=== PATIENT | female | born 1980 | race Caucasian/White ===

== ENCOUNTER 2018-09-11 21:39 | Emergency (ER) | payer MEDICAID ==
[~2018-09-11] VITALS: Ht 154.9 cm; Wt 69.6 kg
[2018-09-11 21:44] VITALS: BP 129/84
--- NOTE | 2018-09-11 21:47 | NUR ---
TO LOBBY A/W BED, AMB, VSS, ERMD, NOTED, NASAL SWAB DONE.
--- NOTE | 2018-09-11 22:20 | NUR ---
37 Y/O F PRESENTS TO THE ED W/C/O COUGH AND FEVER. TEMP 98.8 ORAL. PT STATES SHE HAS PAIN WHEN SHE COUGHS CAUSING THE CHEST TO HURT. THIS HAS BEEN GOING ON FOR A MONTH. PT DENIES N/V/D; SKIN IS INTACT, PINK/WARM/DRY; AAOX4, PERRL, WITH EVEN AND STEADY GAIT; BREATHING UNLABORED; HR EVEN AND REGULAR, BL PERIPHERAL PULSES PRESENT; BS ACTIVE X4. PT STATES 10/10 PAIN AT THIS TIME; VSS; PATIENT POSITIONED FOR COMFORT; HOB ELEVATED; BEDRAILS UP X2; BED DOWN.
--- NOTE | 2018-09-11 22:20 | NUR ---
PT TAKEN TO BED 3
[2018-09-11] MEDS ORDERED: ACETAMIN/CODEINE 120/12MG-5ML 5 ML UDC PO ONE (23:00)
[2018-09-11] MEDS ORDERED: KETOROLAC 30 MG/ML VIAL IM ONE (23:00)
[2018-09-12 00:25] VITALS: BP 125/84
--- NOTE | 2018-09-12 00:26 | NUR ---
Patient discharged with v/s stable. Written and verbal after care instructions given and explained. Patient alert, oriented and verbalized understanding of instructions. Ambulatory with steady gait. All questions addressed prior to discharge. ID band removed. Patient advised to follow up with PMD. Rx of PREDNISONE, ALBUTEROL, AZITHROMYCIN given. Patient educated on indication of medication including possible reaction and side effects. Opportunity to ask questions provided and answered.
== END 2018-09-12 00:26 | disposition home or self-care (01) ==
LOC: MED 21:39
DX: J20.9 Acute bronchitis, unspecified (principal)
CPT/HCPCS: 36415; 71045; 87804; 96372; 99284; J1885; Q0092

== ENCOUNTER 2018-12-13 13:05 | Inpatient (IN) | payer MEDICAID ==
[~2018-12-13] VITALS: Ht 157.5 cm; Wt 63.5 kg
--- NOTE | 2018-12-13 13:19 | NUR ---
PATIENT AMBULATED TO BED 3 AT THIS TIME.
[2018-12-13 13:27] VITALS: BP 116/78
--- NOTE | 2018-12-13 13:35 | NUR ---
Pt report given to nestor Justice. Transfer of care at this time.
--- NOTE | 2018-12-13 13:49 | NUR ---
THIS 38 YEAR OLD FEMALE IS BIB SELF TO THE ED WITH THE CHIEF C/O ABDOMINAL PAIN THAT RADIATES TO LOWER BACK FOR 15 HOURS. DENIES ANY N/V. HAVING DIARRHEA X4 WEEKS. NO BLOOD IN DIARRHEA. DIARRHEA X4 TODAY. DENIES ANY BURNING OR FREQUENCY OF URINATION. DENIES ANY FEVER. DENIES MEDICAL HX. STATES PAIN OF 10/10 AT THIS TIME. VSS. ER AWARE.
[2018-12-13] MEDS ORDERED: ONDANSETRON 4 MG/2 ML VIAL IVP ONE (14:00)
[2018-12-13 14:38] LABS: BASOPHILS % (AUTO) 0.4 % (0.0-2.0); EOSINOPHILS # (AUTO) 0.1 K/uL (0-0.4); EOSINOPHILS % (AUTO) 1.2 % (0.0-4.0); HEMATOCRIT 38.9 % (36-48); HEMOGLOBIN 12.9 g/dL (12.0-16.0); LYMPHOCYTES # (AUTO) 1.1 K/uL (2.5-16.5); LYMPHOCYTES % (AUTO) 12.6 % (20.5-51.1); MEAN CORPUSCULAR HEMOGLOBIN 30 pg (27-31); MEAN CORPUSCULAR HGB CONC 33 g/dL (33-37); MONOCYTES # (AUTO) 0.7 K/uL (0.8-1.0); MONOCYTES % (AUTO) 7.9 % (1.7-9.3); NEUTROPHILS # (AUTO) 6.6 K/uL (1.8-7.7); NEUTROPHILS % (AUTO) 77.9 % (42.2-75.2); PLATELET COUNT (AUTO) 187 K/uL (140-450); RED BLOOD CELL COUNT(AUTO) 4.32 MIL/uL (4.20-5.40); RED CELL DISTRIBUTION WIDTH 13.9 % (11.6-13.7); WHITE BLOOD COUNT (AUTO) 8.5 K/uL (4.8-10.8)
[2018-12-13] MEDS: LEVOFLOXACIN 500 MG/D5W PREMIX 100 ML IV ONE ×2 (14:44→14:54)
[2018-12-13 14:52] LABS: ANION GAP 14.3 (8-16); CARBON DIOXIDE 26.4 mmol/L (21-32); CREATININE 0.5 mg/dL (0.6-1.3); POTASSIUM 3.7 mmol/L (3.5-5.1)
[2018-12-13] MEDS ORDERED: ACETAMINOPHEN 325 MG TAB PO PRN (14:55)
[2018-12-13] MEDS ORDERED: DOCUSATE SODIUM 100 MG GELCAP PO PRN (14:55)
[2018-12-13 15:02] LABS: ALBUMIN 3.4 g/dL (3.4-5.0); TOTAL BILIRUBIN 0.4 mg/dL (0.0-1.0)
[2018-12-13 15:35] LABS: PROTHROMBIN TIME 9.8 secs (10.8-13.4)
[2018-12-13 15:41] LABS: FREE T4 (FREE THYROXINE) 0.9 ng/dL (0.76-1.46); MAGNESIUM 1.7 mg/dL (1.8-2.4); PHOSPHORUS 3.2 mg/dL (2.5-4.9); THYROID STIMULATING HORMONE 1.2 uIU/mL (0.34-3.74)
[2018-12-13] MEDS ORDERED: LOPERAMIDE 2 MG CAP PO SCH (16:00)
[2018-12-13] MEDS: NACL 0.9% 1,000 ML IV SCH (16:01)
--- NOTE | 2018-12-13 16:15 | NUR ---
PT TRANSFERRED TO [facility] VIA [facility] ON STABLE CONDITION. REPORT GIVEN TO TRAVIS MELGAR TAKEN WITH PT.
--- NOTE | 2018-12-13 16:20 | NUR ---
RECEIVED BEDSIDE REPORT FROM ER NURSE. PATIENT IS AWAKE, ALERT AND ORIENTEDX4. USED IRB COMPLIANCE COORDINATOR PHONE FOR ADMISSION QUESTIONS. SHAYAN IRB COMPLIANCE COORDINATOR NUMBER [id number]. MRSA SWAB DONE. SKIN IS INTACT. PATIENT IS AMBULATORY, CONTINENT. PATIENT NPO PATIENT UNDERSTANDS NOTHING TO EAT AT THIS TIME. BED IN LOW POSITION. CALL LIGHT WITHIN REACH. WILL CONTINUE TO MONITOR THE PATIENT.
[2018-12-13 16:25] LABS: APPEARANCE,URINE CLEAR (CLEAR); BILIRUBIN,URINE NEGATIVE (NEGATIVE); BLOOD, URINE 2+ (NEGATIVE); COLOR,URINE YELLOW (YELLOW); LEUKOCYTE ESTERASE ,URINE TRACE (NEGATIVE); NITRITE, URINE NEGATIVE (NEGATIVE); UGLUCOSE NEGATIVE (NEGATIVE)
[2018-12-13 16:30] VITALS: BP 122/69
[2018-12-13 16:31] LABS: BARBITURATE, URINE NEG. ng/ml (NEG <=200); BENZODIAZEPINE, URINE NEG. ng/mL (NEG <=200); CANNABINOID, URINE NEG. ng/mL (NEG <=50); COCAINE, URINE NEG. ng/mL (NEG <=300); OPIATE, URINE NEG. ng/mL (NEG <=2000); PHENCYCLIDINE SCREEN,URINE NEG. ng/mL (NEG <=25)
[2018-12-13] MEDS ORDERED: MAG SULF 2000 MG/WATER PREMIX 50 ML IV SCH (17:00)
[2018-12-13] MEDS: HYDROcodone/APAP 5/325 MG 1 TAB TAB PO PRN ×2 (17:36→23:40)
--- NOTE | 2018-12-13 17:43 | NUR ---
ADMINISTERED MEDS. PATIENT TOLERATED WELL. PATIENT HAS TORIBIO AND ABD PAIN. PAIN MED GIVEN. PATIENT ABLE TO VERBALIZE NEEDS. NO COMPLAINTS AT THIS TIME. WILL CONTINUE TO MONITOR
--- NOTE | 2018-12-13 19:05 | NUR ---
GAVE BEDSIDE REPORT TO PEDIATRIC CRITICAL CARE NURSE NURSE, PATIENT ENDORSED IN STABLE CONDITION
--- NOTE | 2018-12-13 19:06 | NUR ---
RECEIVED BEDSIDE REPORT FROM DAY SHIFT NURSE JANIS RN, PT STABLE, NO DISTRESS NOTED, IV TO L AC 20G PATENT, INTACT, INFUSING MAGNESIUM @ 25ML/HR, INFUSING WELL, PT ON ROOM AIR, NO SOB, INITIAL ASSESSMENT DONE, ALL SAFETY PRECAUTION MET, CALL LIGHT WITHIN REACH, WILL CONTINUE TO MONITOR.
--- NOTE | 2018-12-13 20:00 | NUR ---
REVIEWED ARIELLE ORDER WITH DR CONKLIN REASON FOR EXAM: ON ADMISSION Addendum: 12/13/18 at 2000 by Rohan Jimenez RT CALLED [phone]
--- NOTE | 2018-12-13 20:00 | NUR ---
NOTIFIED DR. CONKLIN REGARDING, PT C/O PAIN 07/02, NORCO ALREADY GIVEN AT 17.36 AND HAS NOT BEEN EFFECTIVE ACCORDING TO PT, STATED UNDERSTANDING, WILL ORDER MEDICATION FOR PT, WILL CONTINUE WITH DR. KRISHNAMURTHY.
[2018-12-13] MEDS: MORPHINE SULFATE 2 MG/ML SYR IVP PRN (20:25)
[2018-12-13] MEDS: metroNIDAZOLE 500 MG/NS PREMIX 100 ML IV SCH (20:26)
[2018-12-13] MEDS: ONDANSETRON 4 MG/2 ML VIAL IM/IVP PRN (20:26)
--- NOTE | 2018-12-13 20:26 | NUR ---
DUE MEDICATION ADMINISTERED, PT STATED HAVING PAIN 10/10 TO THE STOMACH AREA, PAIN MEDICATION PER MD ORDER GIVEN, PT TOLERATED WELL, NO DISTRESS NOTED, CALL LIGHT WITHIN REACH, WILL CONTINUE TO MONITOR.
--- NOTE | 2018-12-13 23:55 | NUR ---
DUE MEDICATION ADMINISTERED, PT TOLERATED WELL, NO DISTRESS NOTED, CALL LIGHT WITHIN REACH, V/S TAKEN WNL, WILL CONTINUE TO MONITOR.
[2018-12-13 23:56] VITALS: BP 109/67
--- NOTE | 2018-12-14 04:30 | NUR ---
CHECKED ON PT, PT SLEEPING, NO DISTRESS NOTED, CALL LIGHT WITHIN REACH, WILL CONTINUE TO MONITOR.
[2018-12-14] MEDS: metroNIDAZOLE 500 MG/NS PREMIX 100 ML IV SCH ×3 (05:15→20:29)
--- NOTE | 2018-12-14 07:25 | NUR ---
ENDORSED PT TO DAY SHIFT NURSE JANIS RN, PT STABLE, NO DISTRESS NOTED, CALL LIGHT WITHIN REACH.
--- NOTE | 2018-12-14 07:26 | NUR ---
RECEIVED BEDSIDE REPORT FROM IRON PLASTIC BULLET MAKER NURSE. PATIENT IS AWAKE, ALERT AND ORIENTEDX4. BURUNDIAN SPEAKER. SKIN IS INTACT. PATIENT IS AMBULATORY. R/O C DIFF, PRECAUTIONS IN PLACE. L AC 20G INFUSING NS AT 60. CLEAN, DRY AND INTACT. BED IN LOW POSITION. CALL LIGHT WITHIN REACH. PATIENT ABLE TO MAKE NEEDS KNOWN. WILL CONTINUE TO MONITOR THE PATIENT.
[2018-12-14 07:29] LABS: BASOPHILS % (AUTO) 0.3 % (0.0-2.0); EOSINOPHILS # (AUTO) 0.1 K/uL (0-0.4); EOSINOPHILS % (AUTO) 0.9 % (0.0-4.0); HEMATOCRIT 36.7 % (36-48); HEMOGLOBIN 12.3 g/dL (12.0-16.0); LYMPHOCYTES # (AUTO) 0.8 K/uL (2.5-16.5); LYMPHOCYTES % (AUTO) 11.7 % (20.5-51.1); MEAN CORPUSCULAR HEMOGLOBIN 30 pg (27-31); MEAN CORPUSCULAR HGB CONC 34 g/dL (33-37); MEAN CORPUSCULAR VOLUME 89.5 fL (80-94); MONOCYTES # (AUTO) 0.6 K/uL (0.8-1.0); MONOCYTES % (AUTO) 8.9 % (1.7-9.3); NEUTROPHILS # (AUTO) 5.5 K/uL (1.8-7.7); NEUTROPHILS % (AUTO) 78.2 % (42.2-75.2); PLATELET COUNT (AUTO) 182 K/uL (140-450); RED CELL DISTRIBUTION WIDTH 13.9 % (11.6-13.7)
[2018-12-14] MEDS: NACL 0.9% 1,000 ML IV SCH (07:33)
[2018-12-14 08:00] VITALS: BP 99/61
[2018-12-14 08:15] LABS: CHOL/HDL RATIO 2.6 (1-4.5)
[2018-12-14 08:35] LABS: CARBON DIOXIDE 23.4 mmol/L (21-32)
[2018-12-14] MEDS: LACTOBACILLUS RHAMNOSUS GG 1 EACH CAP PO SCH (08:49)
[2018-12-14] MEDS: MORPHINE SULFATE 2 MG/ML SYR IVP PRN ×2 (08:50→20:13)
--- NOTE | 2018-12-14 08:50 | NUR ---
B/P 110/57 HR 73 ADMINISTERED PRN PAIN MED. PATIENT COMPLAINTS OF 7/10 ABD PAIN. PATIENT TOLERATED WELL. EDUCATED ON SIDE EFFECTS. PATIENT VERBALIZED UNDERSTANDING. WILL CONTINUE TO MONITOR THE PATIENT. PATIENT ABLE TO MAKE NEEDS KNOWN.
[2018-12-14 09:07] LABS: ANION GAP 14.4 (8-16); CREATININE 0.5 mg/dL (0.6-1.3); POTASSIUM 3.8 mmol/L (3.5-5.1)
[2018-12-14] MEDS ORDERED: NACL 0.9% 250 ML IV SCH (09:10)
[2018-12-14] MEDS ORDERED: DICYCLOMINE HCL LIQUID 10 MG/5 ML UDC PO SCH (09:30)
--- NOTE | 2018-12-14 10:41 | NUR ---
ADMINISTERED NATASHA MEDS AND IV BOLUS. PATIENT TOLERATED WELL. EDUCATED ON SIDE EFFECTS. PATIENT VERBALIZED UNDERSTANDING. MOTHER AT BEDSIDE. ASKED FAMILY TO PUT ON PPE. MOTHER PUT PPE AND EDUCATED ON THE RISKS OF POSSIBLE INFECTION. WILL CONTINUE TO MONITOR THE PATIENT. PATIENT ABLE TO MAKE NEEDS KNOWN
[2018-12-14] MEDS ORDERED: PANTOPRAZOLE 40 MG INJ VIAL IVP SCH (11:00)
--- NOTE | 2018-12-14 12:00 | NUR ---
PATIENT SITTING IN BED IN NO DISTRESS. WILL CONTINUE TO MONITOR THE PATIENT
[2018-12-14] MEDS: DEXT 5% /NACL 0.9% 1,000 ML IV SCH ×2 (12:59→19:10)
--- NOTE | 2018-12-14 13:05 | NUR ---
ADMINISTERED D5 NS AT 100. IV. CLEAN,DRY AND INTACT. ADMINISTERED ORDERED PROTONIX IVP. PATIENT TOLERATED WELL. EDUCATED ON SIDE EFFECTS. PATIENT VERBALIZED UNDERSTANDING. MOM AT BEDSIDE. WILL CONTINUE TO MONITOR
--- NOTE | 2018-12-14 14:03 | NUR ---
ADMINISTERED NATASHA ANTIBIOTICS. PATIENT TOLERATING WELL. EDUCATED ON SIDE EFFECTS. GAVE PATIENT ANOTHER BLANKET REQUESTED. WILL CONTINUE TO MONITOR. PATIENT ABLE TO MAKE NEEDS KNOWN
[2018-12-14 16:00] VITALS: BP 109/69
--- NOTE | 2018-12-14 16:00 | NUR ---
VITALS WNL. WILL CONTINUE TO MONITOR THE PATIENT
--- NOTE | 2018-12-14 16:30 | NUR ---
PATIENT COMPLAINTS OF PAIN AT IV SITE. REMOVED IV AND PLACED A NEW ONE ON L HAND 22G. CLEAN, DRY AND INTACT.
[2018-12-14] MEDS: LEVOFLOXACIN 500 MG/D5W PREMIX 100 ML IV SCH (16:58)
[2018-12-14] MEDS: ONDANSETRON 4 MG/2 ML VIAL IM/IVP PRN ×2 (17:04→21:08)
--- NOTE | 2018-12-14 17:09 | NUR ---
PATIENT IS VOMITING. ADMINISTERED PRN NAUSEA MED. PATIENT NOT TOLERATING FOOD WELL. ADMINISTERED NATASHA ANTIBIOTICS. PATIENT EDUCATED ON SIDE EFFECTS. PATIENT TOLERATED WELL. WILL CONTINUE TO MONITOR. MOM AT BEDSIDE
--- NOTE | 2018-12-14 19:16 | NUR ---
gave bedside report to shift commander nurse. patient endorsed in stable condition
--- NOTE | 2018-12-14 19:16 | NUR ---
RECEIVED REPORT FROM DENILSON RN DAYSHIFT NURSE AT BEDSIDE FOR CONTINUITY OF CARE, PT IN STABLE CONDITION.
--- NOTE | 2018-12-14 19:45 | NUR ---
PT IN BED FAMILY AT BEDSIDE. PT IN LOW BED WITH SIDE RAILS UP X2. PT IS ARMENIAN SPEAKING FEMALE AOX4. SHE HAS C/O OF 9/10 PAIN IN STOMACH. PT SKIN INTACT AND IS AMBULATORY BUT C/O OF FEELING WEAK AND DIZZY WHEN GETTING UP OUT OF BED. PRIMARY NURSE EXPLAINED TO PT THAT SHE NEEDS TO ASK FOR HELP WHEN GETTING OUT OF BED, AND TO TAKE HER TIME FIRST SITTING UP FOR A FEW MINUTES BEFORE AMBULATING TO BATHROOM. V/S FOLLOWS T 98.9 P 80 R 18 B/P 93/55 02 97% ON R/A. WILL RETURN WITH PAIN MEDICATIONS AND A COMMODE.
--- NOTE | 2018-12-14 20:15 | NUR ---
PT HAVING GI CONSULT AT BEDSIDE WITH DR. JOHN. HE SPOKE WITH PT REGARDING HIS RECOMMENDATION FOR A COLONOSCOPE AND THE IMPORTANCE OF GETTING A COLONOSCOPE. PT VERBALIZED UNDERSTANDING, BOWEL PREP ORDERED AND CONSENT TO BE SIGNED. PT GIVEN ORDERED MEDS OF FLAGYL, PROTONIX AND PRN IVP MORPHINE FOR 9/10 PAIN. COMMODE AT BEDSIDE AND PT USED X2 1 SMALL LOOSE STOOL NOTED IN COMMODE. WILL CONTINUE TO MONITOR FOR PAIN, SAFETY, N/V/D.
[2018-12-14] MEDS: PANTOPRAZOLE 40 MG INJ VIAL IVP SCH (20:23)
[2018-12-14] MEDS ORDERED: MAGNESIUM CITRATE 300 ML BTL PO SCH (20:30)
[2018-12-14] MEDS ORDERED: BISACODYL 5 MG TABEC PO SCH (20:30)
--- NOTE | 2018-12-14 21:10 | NUR ---
BOWEL PREP DUCOLAX TABS X3 (15MG) AND 1 BOTTLE 300MG OF MAG CITRATE PLUS INSTRUCTIONS TO CONSUME 500MLS OF H2O.PT GIVEN INSTRUCTIONS THROUGH TRANSLATORS AND THE IMPORTANCE OF TAKING ALL BOWEL PREP. PT C/O OF NAUSEA AND WAS GIVEN ZOFRAN IVP/PRN. WILL CONTINUE TO MONITOR PT CALL HICKS IN REACH AND COMMODE AT BEDSIDE.
[2018-12-14 23:24] VITALS: BP 93/55
[2018-12-15] MEDS: HYDROcodone/APAP 5/325 MG 1 TAB TAB PO PRN (00:25)
--- NOTE | 2018-12-15 00:34 | NUR ---
PT IN BED HAD ANOTHER MODERATE LOOSE STOOL. PT C/O VOMITED 4 0Z OF BILE LIKE SUBSTANCE. PT C/O OF 4/10 PAIN GIVEN NORCO PO/PRN. PT ALSO SIGNED CONSENT FOR COLONOSCOPE. V/S FOLLOWS T 98.5 P 70 R 18 B/P 105/67 02 945 ON ROOM AIR. WILL CONTINUE TO MONITOR FOR PAIN, VOMITING AND LOOSE STOOL.
[2018-12-15] MEDS ORDERED: BISACODYL 5 MG TABEC PO SCH (03:00)
[2018-12-15] MEDS ORDERED: MAGNESIUM CITRATE 300 ML BTL PO SCH (03:00)
--- NOTE | 2018-12-15 03:37 | NUR ---
PTRELUCTANT TO TAKE MORE BOWEL PREP ORDERS , HAD BACKUP SAWYER TO TRANSLATE TEACHING FOR BOWEL PREP AND COLONOSCOPY PROCEDURE, PT VERBALIZED UNDERSTANDING AND TOOK COLACE TABS (3) FOR A TOTAL OF 15MG, HOWEVER MAG CITRATE NOT IN EITHER PIXIES, CALLED HOUSE SUP WHO IS LOOKING FOR MEDICATION.
[2018-12-15] MEDS: DEXT 5% /NACL 0.9% 1,000 ML IV SCH ×2 (04:00→14:16)
--- NOTE | 2018-12-15 04:15 | NUR ---
MAG CITRATE LOCATED BY BRASS ROLLER, AND GIVEN TO PT. PT RELUCTANT TO TAKE IT, BUT REMINDED HOW IMPORTANT BOWEL PREP IS FOR PROCEDURE VIA SCREW DOWN, PT AGREED TO TAKE. PT REMINDED TO ICELANDIC BOTTLE AND TAKE WATER.
[2018-12-15] MEDS: metroNIDAZOLE 500 MG/NS PREMIX 100 ML IV SCH ×3 (05:48→21:05)
--- NOTE | 2018-12-15 05:54 | NUR ---
PT IN BED RESTING WITH EYES CLOSED, NO S/S OF PAIN OR DISTRESS NOTED. PT SAID THAT SHE FINISHED THE MAG CITRATE, AND SHE SAID SHE HER LAST BM WAS CLEAR TINGED YELLOW. PT DENIES PAIN, BED LOW AND CALL HICKS IN REACH.
--- NOTE | 2018-12-15 07:15 | NUR ---
REPORT GIVEN TO DAVID ROBLES DAYSHIFT NURSE AT BEDSIDE FOR CONTINUITY OF CARE, PT IN STABLE CONDITION.
--- NOTE | 2018-12-15 07:20 | NUR ---
RECEIVED PT FROM CANOE INSPECTOR FINAL NURSE, DANTE, PT IS AWAKE AND LYING ON THE BED WITH SIDE RAILS UP, AND CALL LIGHT WITHIN REACH, PT HAS AN IV LINE ON THE LEFT HAND G. 22 WITH D5NS INFUSING AT 100ML/HR, INTACT, COMMODE ON THE BEDSIDE, PT DENIES PAIN AND NO SOB NOTED, NO SIGN OF DISTRESS NOTED AND WILL MONITOR PT.
[2018-12-15 07:40] LABS: BASOPHILS % (AUTO) 0.4 % (0.0-2.0); EOSINOPHILS # (AUTO) 0.1 K/uL (0-0.4); EOSINOPHILS % (AUTO) 2.8 % (0.0-4.0); HEMATOCRIT 39.1 % (36-48); HEMOGLOBIN 13.1 g/dL (12.0-16.0); LYMPHOCYTES # (AUTO) 1.2 K/uL (2.5-16.5); LYMPHOCYTES % (AUTO) 24.3 % (20.5-51.1); MEAN CORPUSCULAR HEMOGLOBIN 30 pg (27-31); MEAN CORPUSCULAR HGB CONC 33 g/dL (33-37); MEAN CORPUSCULAR VOLUME 90.3 fL (80-94); MONOCYTES # (AUTO) 0.6 K/uL (0.8-1.0); MONOCYTES % (AUTO) 12.7 % (1.7-9.3); NEUTROPHILS % (AUTO) 59.8 % (42.2-75.2); PLATELET COUNT (AUTO) 199 K/uL (140-450); RED BLOOD CELL COUNT(AUTO) 4.33 MIL/uL (4.20-5.40); RED CELL DISTRIBUTION WIDTH 14.1 % (11.6-13.7)
--- NOTE | 2018-12-15 07:45 | NUR ---
PT IS AWAKE AND VITAL SIGNS CHECKED AND IS WITHIN NORMAL LIMIT, BP IS 100/63, PULSE IS 73, TEMP. IS 97.9, RESPIRATION IS 16/MIN AND O2 SATURATION IS 96%. ASSISTED PT TO THE BATHROOM AND ASSISTED BACK TO BED. NO SIGN OF DISTRESS NOTED. WILL MONITOR PT.
[2018-12-15 07:59] LABS: ANION GAP 15.1 (8-16); CARBON DIOXIDE 20.4 mmol/L (21-32); CREATININE 0.5 mg/dL (0.6-1.3); POTASSIUM 3.5 mmol/L (3.5-5.1)
[2018-12-15 08:00] VITALS: BP 100/63
--- NOTE | 2018-12-15 08:26 | NUR ---
PATIENT HAS BEEN SCREENED AND CATEGORIZED HIGH NUTRITION RISK. PATIENT WILL BE SEEN WITHIN 1-2 DAYS OF ADMISSION. 12/15/[address]
[2018-12-15] MEDS ORDERED: BOWEL EVACUANT DRINK 4,000 ML PDS PO SCH (09:00)
--- NOTE | 2018-12-15 09:00 | NUR ---
DR. PEREIRA MADE A TELEPHONE STAT ORDER TO GIVE 2 FLEET ENEMA TO PT AND TO CANCEL GOLYTELY, ORDER READ BACK AND VERIFIED AND WILL CARRY OUT ORDER.
[2018-12-15] MEDS: PANTOPRAZOLE 40 MG INJ VIAL IVP SCH ×2 (09:23→21:05)
[2018-12-15] MEDS: LACTOBACILLUS RHAMNOSUS GG 1 EACH CAP PO SCH (09:23)
[2018-12-15] MEDS: SODIUM PHOSPHATE 118 ML ENEM RC SCH (09:26)
--- NOTE | 2018-12-15 10:00 | NUR ---
PT REFUSED TO TAKE THE SECOND ENEMA NOW, PT VERBALIZED THAT SHE IS HURTING TOO MUCH IN HER BOTTOM.
[2018-12-15] MEDS ORDERED: MIDAZOLAM 2 MG/2 ML VIAL ONE (10:03)
[2018-12-15] MEDS ORDERED: fentaNYL 0.05 MG/ML VIAL ONE (10:03)
[2018-12-15] MEDS ORDERED: diphenhydrAMINE 50 MG/ML VIAL ONE (10:04)
--- NOTE | 2018-12-15 10:24 | NUR ---
INFORMED THE OR NURSES, JENARO AND JUANITA THAT PT REFUSED TO TAKE THE SECOND ENEMA AND HAD VERBALIZED THAT HER BOTTOM IS HURTING SO MUCH, JUANITA ATTEMPTED TO TALK TO PT AND PT VERBALIZED THE SAME THING.
--- NOTE | 2018-12-15 10:25 | NUR ---
PT IS OFF THE UNIT NOW FOR A COLONOSCOPY, PT IS STABLE AT THIS TIME.
--- NOTE | 2018-12-15 11:08 | NUR ---
PT WAS BROUGHT BACK TO UNIT FROM OR BY OR NURSEJENARO RN SAID THAT WHEN THEY USED THE TELEPHONE FOR A LAWYER CRIMINAL, PT WAS ASKED IF SHE IS AWARE OF THE PROCEDURE TO BE DONE TO HER AND PT VERBALIZED THAT SHE IS NOT AWARE AND THAT SHE KNOWS THE REASON WHY SHE IS HAVING DIARRHEA AND SHE SAID THAT IT IS DUE TO THE FOODS SHE ATE. OR NURSEJENARO SAID THAT MD IS AWARE BUT PT REFUSED TO GO WITH THE COLONOSCOPY. WILL INFORM MD..
--- NOTE | 2018-12-15 11:10 | NUR ---
CALLED DR. JOHNSON WHO IS COVERING FOR DR. PLUNKETT, AND INFORMED MD THAT PT WAS BROUGHT BACK TO UNIT BUT COLONOSCOPY WAS NOT DONE DUE TO PT'S REFUSAL, GI DOCTOR AWARE AND THAT PT VERBALIZED THAT SHE IS AWARE THAT SHE HAD DIARRHEA BECAUSE OF THE FOODS THAT SHE HAD EATEN. DR. JOHNSON ACKNOWLEDGED AND SAID TO PUT A NOTE ON IT.
--- NOTE | 2018-12-15 11:15 | NUR ---
PT WAS ASKED REGARDING THE REFUSAL FOR THE COLONOSCOPY USING AN MILLING MACHINE OPERATOR GEAR AND PT VERBALIZED THAT SHE DOES NOT WANT TO HAVE A COLONOSCOPY ANYMORE.
--- NOTE | 2018-12-15 12:30 | NUR ---
PT IS AWAKE AND FAMILY ON THE BEDSIDE, MEDICATION WAS GIVEN VIA IVPB AND PT TOLERATED IT. NO SIGN OF DISTRESS NOTED AND WILL MONITOR PT.
--- NOTE | 2018-12-15 14:17 | NUR ---
PT'S IVF BAG WAS CHANGED NOW.
[2018-12-15] MEDS: LEVOFLOXACIN 500 MG/D5W PREMIX 100 ML IV SCH (14:22)
--- NOTE | 2018-12-15 15:32 | NUR ---
12/15/18 RD INITIAL ASSESSMENT COMPLETED PLEASE REFER TO NUTRITION ASSESSMENT UNDER CARE ACTIVITY FOR ESTIMATED NUTRITIONAL NEEDS. 1. CONTINUE CLEAR LIQUID DIET TOLERATED 2. WHEN PATIENT BECOMES MEDICALLY STABLE CONSIDER ADVANCING DIET TO FULL LIQUID AND THEN REGULAR 3. RD TO FOLLOW-UP 3-5 DAYS, MODERATE RISK NORIS BAKER, GUNNER
[2018-12-15 16:00] VITALS: BP 98/50
--- NOTE | 2018-12-15 16:31 | NUR ---
PT WAS ASKED VIA AN MODEL ENGINE MECHANIC, LUZMARIA MODEL ENGINE MECHANIC #[id number] AND PT VERBALIZED THAT SHE HAD THREE DIARRHEA SINCE 7AM AND DOES NOT WANT TO UNDERGO COLONOSCOPY, DR. PLUNKETT WAS INFORMED OF THE PT'S RESPONSE.
--- NOTE | 2018-12-15 19:15 | NUR ---
ENDORSED PT TO REAGENT TENDER HELPER NURSE, SUMMER FOR CONTINUITY OF CARE, PT IS STABLE AT THIS TIME.
--- NOTE | 2018-12-15 19:30 | NUR ---
RECEIVED BEDSIDE REPORT FROM DAY SHIFT RN, PATIENT IN BED, PRYDEINIG SPEAKING, FAMILY AT BEDSIDE, NO SIGNS OF ACUTE DISTRESS, IV IN LEFT HAND 22 G INFUSING D5/NS AT 100 ML/HR. REPORTED BY DAY SHIFT THAT PATIENT REFUSED COLONOSCOPY BECAUSE NO ONE EXPLAINED THE PROCEDURE TO HER. WILL CONTINUE TO MONITOR .
--- NOTE | 2018-12-15 21:05 | NUR ---
DUE MEDICATIONS GIVEN, WILL CONTINUE TO MONITOR.
[2018-12-15] MEDS ORDERED: INFLUENZA VIRUS VACCINE QUAD 0.5 ML SYR IMVAC PRN (23:05)
[2018-12-16] VITALS: BP 112/82
--- NOTE | 2018-12-16 | NUR ---
V/S TAKEN, DENIES PAIN WILL CONTINUE TO MONITOR
[2018-12-16] MEDS: DEXT 5% /NACL 0.9% 1,000 ML IV SCH (01:28)
--- NOTE | 2018-12-16 01:28 | NUR ---
STARTED IVF WITH D2/NS AT 100 ML/HR
--- NOTE | 2018-12-16 05:00 | NUR ---
DUE FLAGYL GIVEN
[2018-12-16] MEDS: metroNIDAZOLE 500 MG/NS PREMIX 100 ML IV SCH (05:03)
[2018-12-16] MEDS ORDERED: NACL 0.9% 1,000 ML IV SCH (06:15)
[2018-12-16] MEDS ORDERED: METR250T2 PO (06:16)
[2018-12-16] MEDS ORDERED: LACT10CA1 PO (06:17)
--- NOTE | 2018-12-16 07:30 | NUR ---
ENDORSED PATIENT TO DAY SHIFT NURSE
--- NOTE | 2018-12-16 07:35 | NUR ---
PT IS AWAKE AND SEATED ON THE BED WITH SIDE RAILS UP AND CALL LIGHT WITHIN REACH, PT HAS AN IV LINE ON THE LEFT HAND G. 22 WITH D5NS INFUSING AT 100ML/HR, INTACT, COMMODE ON THE BEDSIDE BUT PT VERBALIZED THAT SHE DID NOT HAVE ANY DIARRHEA ALREADY. PT DENIES ANY PAIN AND NO SOB NOTED, WILL MONITOR PT.
[2018-12-16 08:00] VITALS: BP 114/66
--- NOTE | 2018-12-16 08:20 | NUR ---
PT IS AWAKE AND JUST FINISHED EATING HER BREAKFAST, VITAL SIGNS CHECKED AND RESULT IS BP IS 114/66, PULSE IS 77, TEMPERATURE IS 98.4, O2 SATURATION IS 99% AND RESPIRATION IS 16/MIN. NO SIGN OF DISTRESS NOTED AND WILL MONITOR PT.
[2018-12-16] MEDS ORDERED: CIPR500T4 PO (08:26)
[2018-12-16] MEDS: LACTOBACILLUS RHAMNOSUS GG 1 EACH CAP PO SCH (09:35)
[2018-12-16] MEDS: PANTOPRAZOLE 40 MG INJ VIAL IVP SCH (09:35)
--- NOTE | 2018-12-16 09:35 | NUR ---
PT IS AWAKE AND SEATED ON THE BED, ORAL MEDICATIONS WERE GIVEN AND PT TOLERATED IT. NO SIGN OF DISTRESS NOTED AND WILL MONITOR PT.
[2018-12-16] MEDS: SODIUM PHOSPHATE 118 ML ENEM RC SCH (10:00)
--- NOTE | 2018-12-16 10:50 | NUR ---
DISCHARGED PT VIA WHEELCHAIR WITH THE , IV LINE AND ARM BANDS REMOVED, DISCHARGED TEACHINGS AND INSTRUCTIONS GIVEN TO PT VIA AN UNIVERSITY EXTENSION SPECIALIST, DANELLE#[id number], AND PT VERBALIZED UNDERSTANDING. PT IS STABLE AT THIS TIME, BP IS 118/65, PULSE IS 78, O2 SATURATION IS 98%, TEMPERATURE IS 98.2 AND RESPIRATION IS 16/MIN AND DENIES PAIN.
== END 2018-12-16 10:50 | disposition home or self-care (01) | DRG 249 ==
LOC: MED 13:05 → MTU 15:44
PROVIDERS: ADMIT General Practice; ATTEND General Practice
DX: A08.4 Viral intestinal infection, unspecified (principal); E83.42 Hypomagnesemia; Z53.29 Procedure and treatment not carried out because of patient's decision for other reasons
CPT/HCPCS: 36415; 71045; 80048; 80053; 80305; 81001; 81025; 82150; 82272; 83036; 83605; 83690; 83735; 84100; 84134; 84439; 84443; 85025; 85610; 85730; 87040; 87045; 87070; 87081; 87086; 87177; 89055; 93005; 96374; 99285; C9113; J1200; J1956; J2250; J2270; J2405; J3010; J3475; J3490; J7030; J7042; Q0092

== ENCOUNTER 2019-04-29 13:49 | Emergency (ER) | payer MEDICAID ==
[~2019-04-29] VITALS: Ht 157.5 cm; Wt 79.4 kg
[~2019-04-29 13:49] MED LIST: CIPR500T4 PO; LACT10CA1 PO; METR250T2 PO
[2019-04-29 13:57] VITALS: BP 128/74
--- NOTE | 2019-04-29 13:57 | NUR ---
PT BROUGHT IN TO BED 11 VIA WHEELCHAIR.
--- NOTE | 2019-04-29 14:00 | NUR ---
PT BIB BROTHER TO ED, S/P FALL FROM 2 STEPS OF STAIRS C/O RIGHT ANKLE PAIN 10/10 WITH SWELLING, PAIN TO TOUCH AND MOVEMENT, PEDAL PULSE PRESENT, ABLE TO MOVE TOES WITH CAP REFILL <3SEC, PT ALSO C/O LOW BACK PAIN, DENIES ANY HEAD INJURY, C/O NAUSEA, NO VOMITTING, NO BLURRY VISION. ED MD DR. BARAJAS MADE AWARE, WILL CONTINUE TO MONITOR CLOSELY, BED IN LOWEST POSITION.
--- NOTE | 2019-04-29 14:10 | NUR ---
XRAY AT BEDSIDE
[2019-04-29] MEDS ORDERED: ONDANSETRON 4 MG ODT PO ONE (14:30)
[2019-04-29] MEDS ORDERED: IBUPROFEN 600 MG TAB PO ONE (14:30)
[2019-04-29] MEDS ORDERED: MORPHINE SULFATE 4 MG/ML SYR IM ONE (14:30)
[2019-04-29 16:00] VITALS: BP 112/78
--- NOTE | 2019-04-29 16:00 | NUR ---
Patient discharged with v/s stable. Written and verbal after care instructions given and explained. INTERPRETATION PROVIDED BY DEBBIE HARGROVE Patient alert, oriented and verbalized understanding of instructions. Wheel Chair Assisted with to car. All questions addressed prior to discharge. ID band removed. Patient advised to follow up with PMD as soon as possible. Rx of NAPROSYN 500MG AND NORCO 5MG-325MG given and a copy of radiology report (CD) provided. Patient educated on indication of medication including possible reaction and side effects. Opportunity to ask questions provided and answered.
== END 2019-04-29 16:00 | disposition home or self-care (01) ==
LOC: MED 13:49
DX: S82.401A Unspecified fracture of shaft of right fibula, initial encounter for closed fracture (principal); Z79.2 Long term (current) use of antibiotics; Z79.899 Other long term (current) drug therapy; W10.8XXA Fall (on) (from) other stairs and steps, initial encounter; Y93.89 Activity, other specified; Y92.89 Other specified places as the place of occurrence of the external cause; Y99.8 Other external cause status
CPT/HCPCS: 29515; 73590; 73610; 96372; 99283; J2270; Q0092; Q0162

== ENCOUNTER 2019-11-01 22:06 | Emergency (ER) | payer MEDICAID ==
[~2019-11-01] VITALS: Ht 162.6 cm; Wt 61.2 kg
[2019-11-01 22:18] VITALS: BP 125/71
--- NOTE | 2019-11-01 22:18 | NUR ---
PT BROUGHT TO ROOM 8
--- NOTE | 2019-11-01 22:22 | NUR ---
PT TAKEN TO BED 8
--- NOTE | 2019-11-01 22:23 | NUR ---
PT BIB SON; C/O "CHEST" PAIN- POINTING TO UNDERNEATH THE RIBS AND EXPLAINS IT INTERCOSTAL/ MUSCULOSKELETAL PAIN WHICH WORSENS WITH DEEP BREATHING- STARTING YESTERDAY. PT C/O DIFFICULTY BREATHING BUT RR EVEN AND MILDLY LABORED; O2 99% ON RA. PT SITTING UPRIGHT IN GURNEY, ATTACHED TO THE PULSE OX AND MONITOR; VSS. C/O PRODUCTIVE COUGH AND CONGESTION; REPORTS TAKING MUCINEX RECENTLY BUT NOTHING FOR THE PAIN, NOR A COUGH SUPPRESSANT. C/O N/V LAST TIME AT 5 OR 6PM, SAYS SHE HASN'T BEEN ABLE TO KEEP DOWN FLUIDS OR FOODS. DENIES ABD PAIN AND DIARRHEA. AOX4, GAIT UNSTEADY, DENIES DIZZINESS OR LIGHTHEADEDNESS.
--- NOTE | 2019-11-01 23:46 | NUR ---
Dr. Godoy examining patient.
[2019-11-02] MEDS: NACL 0.9% 1,000 ML IV ONE (00:04)
[2019-11-02] MEDS: KETOROLAC 30 MG/ML VIAL IVP ONE (00:04)
--- NOTE | 2019-11-02 00:18 | NUR ---
PT RESTING COMFORTABLY- REPORTS IMPROVEMENT IN PAIN/BODY ACHES AFTER TORADOL; VSS; RR EVEN AND UNLABORED; COUGHING SUBSIDED; IVF BOLUS RUNNING, DENIES N/V; REPORTS FEELING COLD- NO FEVER- GIVEN ANOTHER BLANKET. WILL CONTINUE TO MONITOR.
--- NOTE | 2019-11-02 00:52 | NUR ---
PT RESTING COMFORTABLY; VSS; RR EVEN AND UNLABORED. REPORTS FEELING CHILLED. IVF BOLUS JUST FINISHED. REPORTS A LITTLE NAUSEA AND WORSENING BODY ACHES OF 8/10.
[2019-11-02 01:10] VITALS: BP 123/76
--- NOTE | 2019-11-02 01:10 | NUR ---
Patient discharged with v/s stable. Written and verbal after care instructions given and explained. Patient alert, oriented and verbalized understanding of instructions. Ambulatory with steady gait. All questions addressed prior to discharge. ID band removed. Patient advised to follow up with PMD. Rx of PREDNISONE, MOTRIN given. Patient educated on indication of medication including possible reaction and side effects. Opportunity to ask questions provided and answered.
== END 2019-11-02 01:10 | disposition home or self-care (01) ==
LOC: MED 22:06
DX: J11.1 Influenza due to unidentified influenza virus with other respiratory manifestations (principal); Z79.899 Other long term (current) drug therapy
CPT/HCPCS: 96374; 99283; J1885; J7030; 99284

== ENCOUNTER 2020-08-08 20:14 | Emergency (ER) | payer MEDICAID ==
[~2020-08-08] VITALS: Ht 154.9 cm; Wt 79.4 kg
[~2020-08-08 20:14] MED LIST changes: +METR-520 PO; -METR250T2 PO
[2020-08-08 20:36] VITALS: BP 106/67
--- NOTE | 2020-08-08 20:40 | NUR ---
triaged and waiting in lobby.
--- NOTE | 2020-08-08 20:50 | NUR ---
39 Y/O FEMALE BIB SELF FOR C/O midsternal "PRESSURE" chest pain 9 that radiates to L upper back that started this evening X 3 hours ago. HEART SOUNDS S1 AND S2 PRESENT. RESPIRATIONS WERE EVEN AND UNLABORED EVIDENCE BY RISE AND FALL OF CHEST. LUNG SOUNDS WERE CLEAR, THORUGHOUT BILATERALLY A&P. DENIES TAKING ANY OTC MEDS FOR PAIN. PT PLACED ON ZIPPER SEWING MACHINE OPERATOR AT THIS TIME. PMHX: DENIES NKA
--- NOTE | 2020-08-08 20:51 | NUR ---
To ED bed 11
--- NOTE | 2020-08-08 20:58 | NUR ---
EKG BEING PERFORMED AT BEDSIDE BY EMT.
--- NOTE | 2020-08-08 21:00 | NUR ---
LAB BEING DRAWN AT BEDSIDE.
--- NOTE | 2020-08-08 21:12 | NUR ---
XRAY AT BEDSIDE.
[2020-08-08] MEDS ORDERED: ASPIRIN 81 MG TAB.CHEW PO ONE (21:25)
--- NOTE | 2020-08-08 21:28 | NUR ---
US AT BEDSIDE.
[2020-08-08 21:43] LABS: BASOPHILS % (AUTO) 0.2 % (0.0-2.0); EOSINOPHILS # (AUTO) 0.2 K/uL (0-0.4); EOSINOPHILS % (AUTO) 3.9 % (0.0-4.0); HEMATOCRIT 35.1 % (36-48); LYMPHOCYTES # (AUTO) 1.5 K/uL (2.5-16.5); LYMPHOCYTES % (AUTO) 24.6 % (20.5-51.1); MEAN CORPUSCULAR HEMOGLOBIN 31 pg (27-31); MEAN CORPUSCULAR HGB CONC 34 g/dL (33-37); MEAN CORPUSCULAR VOLUME 89.3 fL (80-94); MONOCYTES # (AUTO) 0.6 K/uL (0.8-1.0); MONOCYTES % (AUTO) 9.2 % (1.7-9.3); NEUTROPHILS # (AUTO) 3.8 K/uL (1.8-7.7); NEUTROPHILS % (AUTO) 62.1 % (42.2-75.2); PLATELET COUNT (AUTO) 175 K/uL (140-450); RED BLOOD CELL COUNT(AUTO) 3.94 MIL/uL (4.20-5.40); RED CELL DISTRIBUTION WIDTH 12.6 % (11.6-13.7); WHITE BLOOD COUNT (AUTO) 6.1 K/uL (4.8-10.8)
[2020-08-08 22:02] LABS: ALBUMIN 3.3 g/dL (3.4-5.0); ANION GAP 13.7 (8-16); CREATININE 0.7 mg/dL (0.6-1.3); POTASSIUM 3.7 mmol/L (3.5-5.1); TOTAL BILIRUBIN 0.2 mg/dL (0.0-1.0)
[2020-08-08 22:03] LABS: PROTHROMBIN TIME 9.5 secs (10.8-13.4)
[2020-08-08] MEDS ORDERED: KETOROLAC 15 MG/ML VIAL IVP ONE ×2 (23:00→23:35)
--- NOTE | 2020-08-08 23:10 | NUR ---
PER PT'S PERMISSION PROVIDED PT'S MOTHER (MONALISA VICTORIA) WITH UPDATE. SHE PROVIDED CONTACT INFO: .
--- NOTE | 2020-08-08 23:32 | NUR ---
ERMD AT BEDSIDE.
--- NOTE | 2020-08-08 23:38 | NUR ---
ER MD USING ULTRA SOUND TO MEDICALLY EVALUATE PATIENT.
[2020-08-09 00:50] VITALS: BP 99/63
== END 2020-08-09 00:50 | disposition home or self-care (01) ==
LOC: MED 20:14
DX: R07.9 Chest pain, unspecified (principal); R22.41 Localized swelling, mass and lump, right lower limb; Z79.899 Other long term (current) drug therapy
CPT/HCPCS: 36415; 71045; 80053; 83880; 84484; 85025; 85610; 85730; 93005; 93971; 96374; 99285; J1885

== ENCOUNTER 2020-10-08 06:15 | Emergency (ER) | payer MEDICAID, OTHER ==
[~2020-10-08] VITALS: Ht 154.9 cm; Wt 68.0 kg
--- NOTE | 2020-10-08 06:19 | NUR ---
PT BIBA TO BED 11.
[2020-10-08 06:24] VITALS: BP 128/83
[2020-10-08] MEDS ORDERED: HYDROcodone/APAP 5/325 MG 1 TAB TAB PO ONE (06:30)
--- NOTE | 2020-10-08 06:32 | NUR ---
SERGEI GALLAGHER AT BEDSIDE EVALUATING PT.
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
--- NOTE | 2020-10-08 06:49 | NUR ---
PT AMBULATED TO THE BATHROOM WITH ASSISTANCE WITH STEADY GAIT. PROVIDED UA SAMPLE.
--- NOTE | 2020-10-08 07:05 | NUR ---
PT TAKEN TO CT VIA RTIGIST.
--- NOTE | 2020-10-08 07:18 | NUR ---
REPORT GIVEN TO DIETER ROBLES FOR CONTINUITY OF CARE.
[2020-10-08 09:10] VITALS: BP 128/83
--- NOTE | 2020-10-08 09:10 | NUR ---
Patient discharged with v/s stable. Written and verbal after care instructions given and explained. Patient alert, oriented and verbalized understanding of instructions. Ambulatory with steady gait. All questions addressed prior to discharge. ID band removed. Patient advised to follow up with PMD. Rx of Robaxin 500mg, Tramadol 50mg, Motrin 800mg given. Patient educated on indication of medication including possible reaction and side effects. Opportunity to ask questions provided and answered.
== END 2020-10-08 09:10 | disposition home or self-care (01) ==
LOC: MED 06:15
DX: S16.1XXA Strain of muscle, fascia and tendon at neck level, initial encounter (principal); R51.9 Headache, unspecified; R07.9 Chest pain, unspecified; M25.551 Pain in right hip; V49.9XXA Car occupant (driver) (passenger) injured in unspecified traffic accident, initial encounter; Y93.89 Activity, other specified; Y92.89 Other specified places as the place of occurrence of the external cause; Y99.8 Other external cause status
CPT/HCPCS: 70450; 71045; 72125; 73501; 81025; 99285

== ENCOUNTER 2021-08-28 11:53 | Emergency (ER) | payer MEDICAID ==
[~2021-08-28] VITALS: Ht 180.3 cm; Wt 73.9 kg
[2021-08-28 12:19] VITALS: BP 127/89
[2021-08-28] MEDS ORDERED: ERYT2GEL22 TP (12:56)
--- NOTE | 2021-08-28 13:08 | NUR ---
PT SEEN AND TREATED BY DR ADEN, NO NURSING INTERVENTIONS PROVIDED
--- NOTE | 2021-08-28 13:09 | NUR ---
Patient discharged with v/s stable. Written and verbal after care instructions ABOUT BLEPHARITIS AND STYE given and explained. Patient alert, oriented and verbalized understanding of instructions. Ambulatory with steady gait. All questions addressed prior to discharge. ID band removed. Patient advised to follow up with PMD. Rx of ERYTHROMYCIN BASE/ETHANOL given. Patient educated on indication of medication including possible reaction and side effects. Opportunity to ask questions provided and answered.
== END 2021-08-28 13:09 | disposition home or self-care (01) ==
LOC: MED 11:53
DX: H00.014 Hordeolum externum left upper eyelid (principal); H01.004 Unspecified blepharitis left upper eyelid; Z79.2 Long term (current) use of antibiotics; Z79.899 Other long term (current) drug therapy
CPT/HCPCS: 99283

== ENCOUNTER 2022-04-09 15:22 | Emergency (ER) | payer MEDICAID ==
[~2022-04-09] VITALS: Ht 154.9 cm; Wt 70.3 kg
[~2022-04-09 15:22] MED LIST changes: +ERYT2GEL22 TP
[2022-04-09 15:26] VITALS: BP 137/65
--- NOTE | 2022-04-09 20:50 | NUR ---
PATIENT CALL TO BE SEEN BY ERMD , NO RESPONSE
--- NOTE | 2022-04-09 20:55 | NUR ---
CALLED FOR THE SECOND TIME , NO RESPONSE
--- NOTE | 2022-04-09 21:05 | NUR ---
CALLED FOR THE THIRD TIME , NO RESPONSE
[2022-04-10] MEDS ORDERED: CYCL-711 PO (10:54)
[2022-04-10] MEDS ORDERED: NAPR-1704 PO (10:54)
[2022-04-10] MEDS ORDERED: NITR100C7 PO (10:54)
== END 2022-04-09 20:50 | disposition left against medical advice (07) ==
LOC: MED 15:22
DX: R42 Dizziness and giddiness (principal); M54.2 Cervicalgia; Z53.21 Procedure and treatment not carried out due to patient leaving prior to being seen by health care provider

== ENCOUNTER 2022-04-10 09:20 | Emergency (ER) | payer MEDICAID ==
[~2022-04-10] VITALS: Ht 154.9 cm; Wt 70.3 kg
[2022-04-10 09:30] VITALS: BP 125/65
[2022-04-10] MEDS ORDERED: CYCL-711 PO (10:54)
[2022-04-10] MEDS ORDERED: NITR100C7 PO (10:54)
[2022-04-10] MEDS ORDERED: NAPR-1704 PO (10:54)
--- NOTE | 2022-04-10 10:55 | NUR ---
no nursing intervention needed, seen & treated by dr fish.
[2022-04-10 11:07] VITALS: BP 111/62
--- NOTE | 2022-04-10 11:07 | NUR ---
Patient discharged with v/s stable. Written and verbal after care instructions given and explained. Patient alert, oriented and verbalized understanding of instructions. Ambulatory with steady gait. All questions addressed prior to discharge. ID band removed. Patient advised to follow up with PMD. Rx of FLEXERIL, NAPROSYN z& MACROBID given. Patient educated on indication of medication including possible reaction and side effects. Opportunity to ask questions provided and answered.
== END 2022-04-10 11:07 | disposition home or self-care (01) ==
LOC: MED 09:20
DX: M54.6 Pain in thoracic spine (principal); Z79.899 Other long term (current) drug therapy
CPT/HCPCS: 81002; 81025; 99283

== ENCOUNTER 2022-07-28 12:56 | Inpatient (IN) | payer MEDICAID ==
[~2022-07-28] VITALS: Ht 154.9 cm; Wt 55.8 kg
[~2022-07-28 12:56] MED LIST changes: +CYCL-711 PO; +NAPR-1704 PO; +NITR100C7 PO
[2022-07-28] MEDS ORDERED: EPINEPHrine 1 MG/ML AMP ONE (13:03)
[2022-07-28] MEDS ORDERED: EPINEPHrine 1 MG/ML AMP IM ONE (13:05)
[2022-07-28] MEDS ORDERED: ALBUTEROL SULFATE/IPRATROPIU 3 ML SOL IH ONE ×2 (13:05→13:45)
[2022-07-28] MEDS ORDERED: methylPREDNISolone SS 125 MG in WATER STERILE 2 ML IV ONE (13:05)
[2022-07-28 13:09] VITALS: BP 139/80
[2022-07-28] MEDS ORDERED: methylPREDNISolone SS 125 MG/2 ML VIAL IVP SCH (13:10)
--- NOTE | 2022-07-28 13:10 | NUR ---
resp distress, pt came to room tachypneic, o2 sat 70 % ra, felt sob after being exposed to high concentration of clorox (bowl) and something else to clean the toilet, diffuse exp wheezing upper lungs, decreased lower lobes put on high flow o2, given epi, feels better. now o2 sat 99%, receiving duoneb, sl X2 lac and rac
--- NOTE | 2022-07-28 13:10 | NUR ---
2X DUONEB BREATHING TX GIVEN AT THIS TIME. PT HAS DECREASE WOB POST TX. V/S STABLE AT THIS TIME. PLACED ON 10L SIMPLE MASK POST TX.
--- NOTE | 2022-07-28 13:43 | NUR ---
pt sleeping, no ac distress, still tachypnea, o2 sat 100% at 2 l/m via nc, sr up times 2, st on cm, hr 120
[2022-07-28 14:07] LABS: BASOPHILS % (AUTO) 0.4 % (0.0-2.0); EOSINOPHILS # (AUTO) 0.4 K/uL (0-0.4); EOSINOPHILS % (AUTO) 5.1 % (0.0-4.0); HEMATOCRIT 40.3 % (36-48); HEMOGLOBIN 13.7 g/dL (12.0-16.0); LYMPHOCYTES # (AUTO) 2.7 K/uL (2.5-16.5); LYMPHOCYTES % (AUTO) 38.5 % (20.5-51.1); MEAN CORPUSCULAR HEMOGLOBIN 31 pg (27-31); MEAN CORPUSCULAR HGB CONC 34 g/dL (33-37); MEAN CORPUSCULAR VOLUME 91.2 fL (80-94); MONOCYTES # (AUTO) 0.4 K/uL (0.8-1.0); MONOCYTES % (AUTO) 5.1 % (1.7-9.3); NEUTROPHILS # (AUTO) 3.6 K/uL (1.8-7.7); NEUTROPHILS % (AUTO) 50.9 % (42.2-75.2); PLATELET COUNT (AUTO) 186 K/uL (140-450); RED BLOOD CELL COUNT(AUTO) 4.42 MIL/uL (4.20-5.40); RED CELL DISTRIBUTION WIDTH 12.8 % (11.6-13.7); WHITE BLOOD COUNT (AUTO) 7.1 K/uL (4.8-10.8)
[2022-07-28 14:28] LABS: ALBUMIN 3.8 g/dL (3.4-5.0); CARBON DIOXIDE 24.2 mmol/L (21-32); CREATININE 0.5 mg/dL (0.6-1.3); TOTAL BILIRUBIN 0.3 mg/dL (0.0-1.0)
[2022-07-28 14:45] LABS: ANION GAP 14.2 (8-16); POTASSIUM 3.4 mmol/L (3.5-5.1)
--- NOTE | 2022-07-28 15:44 | NUR ---
a/o times , feels better about sob, o2 sat 99% at 2 l/m via nc, sr up times 2, awaits dispo
[2022-07-28] MEDS: NACL 0.9% 1,000 ML IV SCH (16:02)
--- NOTE | 2022-07-28 18:54 | NUR ---
food tray given, a/o times 4, feels better about sob, sr on cm, o2 sat 98% 2 l/m via nc, sr up times 2
[2022-07-28] MEDS: MORPHINE SULFATE 2 MG/ML SYR IVP PRN (20:12)
--- NOTE | 2022-07-28 20:20 | NUR ---
Patient ate 25% of meal.
--- NOTE | 2022-07-28 20:41 | NUR ---
Patient lying in bed, A/Ox4, chest rise and fall symmetrical, no c/o pain or s/s of discomfort.
--- NOTE | 2022-07-28 21:15 | NUR ---
Patient lying in bed, A/Ox4, chest rise and fall symmetrical, no c/o pain or s/s of discomfort.
--- NOTE | 2022-07-28 22:39 | NUR ---
Patient lying in bed, A/Ox4, chest rise and fall symmetrical, no c/o pain or s/s of discomfort.
--- NOTE | 2022-07-28 23:14 | NUR ---
Patient lying in bed, A/Ox4, chest rise and fall symmetrical, no c/o pain or s/s of discomfort.
--- NOTE | 2022-07-29 00:35 | NUR ---
Patient lying in bed, A/Ox4, chest rise and fall symmetrical, no c/o pain or s/s of discomfort.
[2022-07-29] MEDS: NACL 0.9% 1,000 ML IV SCH ×3 (00:57→21:06)
--- NOTE | 2022-07-29 02:23 | NUR ---
Patient lying in bed, A/Ox4, chest rise and fall symmetrical, no c/o pain or s/s of discomfort.
--- NOTE | 2022-07-29 04:01 | NUR ---
Patient lying in bed, A/Ox4, chest rise and fall symmetrical, no c/o pain or s/s of discomfort.
--- NOTE | 2022-07-29 06:00 | NUR ---
Patient lying in bed, A/Ox4, chest rise and fall symmetrical, no c/o pain or s/s of discomfort.
[2022-07-29] MEDS ORDERED: POTASSIUM CHLORIDE 10 MEQ TABER PO ONE ×2 (06:05→13:00)
--- NOTE | 2022-07-29 06:10 | NUR ---
Patient will be admitted to care of Vero RN. Admited ICU. Will go to room 3. Belongings list completed. Report given to Vero RN. Vero RN verbalized understanding of report, no further questions. Patient safely transfered to ICU3 bed, on 2L NC oxygen saturation 98%, patient A/Ox4.
--- NOTE | 2022-07-29 06:11 | NUR ---
0611: REC'D REPORT FROM ENTRY TABLE OPERATOR JOHANN CHAUDHARY ADMIT PT IN ICU ROOM 3, TELE STATUS (TELE CONVENIENCE) 0613: PT HERE AT ICU 3. PT'S A/OX4, DENIES PAIN FOR NOW, NO N/V AND NO RESP DISTRESS. NO SOB STATED. AMBULATORY OBSERVED, AMBULATES FROM GURNEY TO ICU BED WITH NO STATED SOB/PAIN/DISCOMFORT. 3.4 K WAS GIVEN BY ENTRY TABLE OPERATOR.
--- NOTE | 2022-07-29 06:56 | NUR ---
0630: SENT OUT MRSA NARES, ON ROOM AIR, SATS >95% NS IVF AT 100C/HR CONTINUE INFUSING ON THE LAC#20G, SL ON THE RAC#20G PATENT AND INTACT SALINE LOCKED. PT TURKMEN SPEAKING. REFUSED TO REMOVE PANTS, PT SAID SHE'S COLD. GIVEN EXTRA BLANKET. OFFERED BEDPAN TO VOIDS. NO SKIN BREAKDOWN WITNESSED BY STEAM SERVICE INSPECTOR MELISSA. NEGATIVE COVID (MARIYA). PT SAID SHE HAS NO FLU SHOT AND IF POSSIBLE SHE WOULD LIKE TO GET ONE BEFORE DC HOME. 0707: WAITING FOR AM RN TO GIVE THE REPORT.
--- NOTE | 2022-07-29 07:09 | NUR ---
0709: REPORT GIVEN TO SUBHASH TO ASSUME PLAN OF CARE.
--- NOTE | 2022-07-29 07:15 | NUR ---
RECEIVED REPORT FROM GAMB CUTTER MELISSA RN. RECEIVED PATIENT FROM ER AT 0614. FAROESE SPEAKING ONLY. A&O X4. TELE OBSERVATION STATUS. DX: CHEMICAL PNEUMONITIS. NASAL CANNULA 2L, O2 SATS 100%, PULSE 70, BP 111/74, RR 12, TEMP 97.6. SR ON MONITOR. IV TO LT AC 20G, RUNNING NS @100MLS/HR, IV TO RT AC 20G, SALINE LOCK. SKIN INTACT. CONTINENT. MILD WEAKNESS, BEDREST. CALL LIGHT WITHIN REACH, WILL CONTINUE TO MONITOR.
[2022-07-29 08:00] VITALS: BP 127/63
--- NOTE | 2022-07-29 08:40 | NUR ---
FAMILY/MOM AT BEDSIDE. UPDATED PT INFORMATION. ALL QUESTIONS ANSWERED.
[2022-07-29] MEDS: MORPHINE SULFATE 2 MG/ML SYR IVP PRN (09:18)
--- NOTE | 2022-07-29 09:20 | NUR ---
PT REPORTED CONTINUOS CHEST PAIN 7-8/10, WORSENING WITH COUGHING. GIVEN MORPHINE SULFATE 2 MG IVP PRN.
--- NOTE | 2022-07-29 09:40 | NUR ---
PATIENT HAS BEEN SCREENED AND CATEGORIZED MODERATE NUTRITION RISK. PATIENT WILL BE SEEN WITHIN 3-5 DAYS OF ADMISSION. 07/28/22-08/02/[address]
--- NOTE | 2022-07-29 10:35 | NUR ---
SEEN AND EXAMINED BY DR DARNELL. UPDATED PT INFORMATION. DR ORDERED CBC, TROPONIN, AND CMP.
--- NOTE | 2022-07-29 10:55 | NUR ---
PT ON ROOM AIR. O2 SATS 97%, NO S/S OF ACUTE RESPIRATORY DISTRESS.
[2022-07-29 11:42] LABS: BASOPHILS % (AUTO) 0.3 % (0.0-2.0); EOSINOPHILS # (AUTO) 0.1 K/uL (0-0.4); HEMOGLOBIN 11.8 g/dL (12.0-16.0); LYMPHOCYTES # (AUTO) 1.8 K/uL (2.5-16.5); LYMPHOCYTES % (AUTO) 12.5 % (20.5-51.1); MEAN CORPUSCULAR HEMOGLOBIN 31 pg (27-31); MEAN CORPUSCULAR HGB CONC 34 g/dL (33-37); MEAN CORPUSCULAR VOLUME 91.8 fL (80-94); MONOCYTES # (AUTO) 0.7 K/uL (0.8-1.0); MONOCYTES % (AUTO) 4.8 % (1.7-9.3); NEUTROPHILS # (AUTO) 11.5 K/uL (1.8-7.7); NEUTROPHILS % (AUTO) 81.4 % (42.2-75.2); PLATELET COUNT (AUTO) 174 K/uL (140-450); RED BLOOD CELL COUNT(AUTO) 3.81 MIL/uL (4.20-5.40); RED CELL DISTRIBUTION WIDTH 13.3 % (11.6-13.7); WHITE BLOOD COUNT (AUTO) 14.1 K/uL (4.8-10.8)
[2022-07-29 12:00] VITALS: BP 145/82
[2022-07-29 12:02] LABS: ALBUMIN 3.2 g/dL (3.4-5.0); CARBON DIOXIDE 24.5 mmol/L (21-32); CREATININE 0.5 mg/dL (0.6-1.3); TOTAL BILIRUBIN 0.2 mg/dL (0.0-1.0)
[2022-07-29 12:30] LABS: ANION GAP 10.9 (8-16); POTASSIUM 3.4 mmol/L (3.5-5.1)
--- NOTE | 2022-07-29 12:30 | NUR ---
SEEN AND EXAMINED BY DR HA. UPDATED K 3.4. ORDER POTASSIUM CHLORIDE 20 MEQ PO.
[2022-07-29] MEDS ORDERED: FLU VACCINE QS2022-23 0.5 ML SYR IMVAC ONE (13:25)
--- NOTE | 2022-07-29 14:20 | NUR ---
FLU VACCINE GIVEN PER PT REQUEST AFTER CONTACTED WITH PHARMACIST AND DR DARNELL. 2 FLU VACCINE BEEN PULLED OUT. FIRST ONE WASTED, NOT GIVEN. SECOND ONE GIVEN TO PT. FLU VACCINE WAS NOT ABLE TO CHART ON EMAR. IT IS OK TO ADMINISTER TO PT PER PHARMACIST.
[2022-07-29 16:00] VITALS: BP 130/71
--- NOTE | 2022-07-29 17:20 | NUR ---
PT DEMONSTRATED INTERMITTED COUGH, WITH SMALL AMOUNT OF CLEAR SPUTUM. VS STABLE. PT ON ROOM AIR, O2 SATS 97%, PULSE 87, BP 139/68., RR 16, TEMP 98.7.
--- NOTE | 2022-07-29 17:49 | NUR ---
PT REPORTED ITCHY AND BURNING INSIDE HER EYES. CONTACTED DR DARNELL, ORDERED BENADRYL PO 25MG.
--- NOTE | 2022-07-29 19:27 | NUR ---
ENDORSED TO SUPERVISOR POUL[employer] VAN RN FOR CONTINUITY OF CARE.
[2022-07-29 20:00] VITALS: BP 144/70
--- NOTE | 2022-07-29 20:05 | NUR ---
RECEIVED REPORT FROM AM SHIFT TRAVIS RIBEIRO. PT A&O X4. PT ON ROOM AIR, BREATHING EVEN AND UNLABORED. REGULAR DIET. ACTIVE BOWEL SOUNDS. PT IS CONTINENT B&B. PERIPHERAL IV ACCESS TO LEFT AC 20 GAUGE. RIGHT AC 2O GAUGE SALINE LOCK. SKIN IS INTACT. PT C/O OF COUGH AND EYE ITCHING AT THIS TIME. WILL ATTEMPT TO CONTACT MD ORDER.
[2022-07-29] MEDS ORDERED: guaiFENesin/CODEINE 100/10MG 5 ML UDC PO PRN (20:30)
[2022-07-29] MEDS ORDERED: POLYVINYL ALCOHOL 1.4% OP 15 ML SOL OP PRN (20:45)
[2022-07-29] MEDS ORDERED: POLYVINYL ALCOHOL 1.4% OP 15 ML SOL BOTH EYES PRN (20:55)
--- NOTE | 2022-07-29 23:25 | NUR ---
PT RESTING. BREATHING EVEN AND UNLABORED. PRN COUGH MEDICINE IS EFFECTIVE.
[2022-07-30 02:28] VITALS: BP 119/61
[2022-07-30 06:11] VITALS: BP 99/66
--- NOTE | 2022-07-30 07:15 | NUR ---
RECEIVED REPORT FROM GRAIN SAMPLER NURSE FOR CONTINUITY OF CARE. PATIENT ASLEEP NO DISTRESS NOTED IV SITE ON HER RIGHT AC EBONY 20 RUNNING 100 CC OF NS. RESPIRATION EVEN NAND NOT LABORED NO SHORTNESS OF BREATH ON ROOM AIR. ALL SAFETY MEASURE IN PLACE.
[2022-07-30 08:00] VITALS: BP 107/67
[2022-07-30] MEDS: NACL 0.9% 1,000 ML IV SCH (08:00)
[2022-07-30] MEDS ORDERED: PANTOPRAZOLE 40 MG TABEC PO SCH ×2 (09:00)
--- NOTE | 2022-07-30 09:00 | NUR ---
IV HYDRATION HANG NEW BAG PATIENT ON STABLE CONDITION EATING BREAKFAST NO DISTRESS NOTED. CALL LIGHT WITH IN EASY REACH.
[2022-07-30] MEDS ORDERED: CEPH-588 PO ×2 (10:45→10:48)
[2022-07-30 12:00] VITALS: BP 110/68
[2022-07-30 12:24] VITALS: BP 110/68
--- NOTE | 2022-07-30 13:25 | NUR ---
PATIENT ALERT ABLE TO RESPONDS VERBALLY RESPIRATION EVEN AND NOT LABORED NO SHORTNESS OF BREATH. PATIENT GIVEN DISCHARGE PACKET WITH INSTRUCTION VERBALIZED UNDERSTANDING. REMOVED NAME BAND AND IV SITE WITH CATHETER INTACT. CHANGING HER CLOTHES AND WAITING FOR HER RIDE AT THIS TIME.
--- NOTE | 2022-07-30 13:35 | NUR ---
PATIENT WALKED BY STUDENT NURSE TO FRONT FOR HER PROGRAMMER PATIENT ON STABLE CONDITION.
== END 2022-07-30 13:35 | disposition home or self-care (01) | DRG 145 ==
LOC: MED 12:56 → MTU 14:45 → MIC 07-29 05:59 → MTU 07-30 01:25
PROVIDERS: ADMIT Family Medicine; ATTEND Family Medicine
DX: J68.0 Bronchitis and pneumonitis due to chemicals, gases, fumes and vapors (principal); J96.00 Acute respiratory failure, unspecified whether with hypoxia or hypercapnia; D72.829 Elevated white blood cell count, unspecified; Z20.822 Contact with and (suspected) exposure to COVID-19; T50.995A Adverse effect of other drugs, medicaments and biological substances, initial encounter; Z79.899 Other long term (current) drug therapy; Y92.89 Other specified places as the place of occurrence of the external cause
CPT/HCPCS: 36415; 36600; 71045; 80053; 82803; 83880; 84484; 85025; 87081; 93005; 94640; 96374; 99291; J0171; J2270; J2930; Q0163